=== PATIENT | male | born 1965 | race Caucasian/White ===

== ENCOUNTER 2016-09-11 15:58 | Emergency (ER) | payer OTHER ==
[~2016-09-11] VITALS: Ht 167.6 cm; Wt 93.9 kg
[~2016-09-11 15:58] MED LIST: AMOXICILLIN875 M1 PO; BACTRIM DS TAB1 EACH PO; HYDROCODONE/ACE1 TA1 PO; PERCOCET 5-3251 EACH PO
--- NOTE | 2016-09-11 17:18 | ED UPPER/LOWER EXTREMITY COMPL ---
History of Present Illness General Chief Complaint: Skin Rash/ Abcess Stated Complaint: RASH L FOREARM,[facility] Source: patient, old records Exam Limitations: no limitations Vital Signs & Intake/Output Vital Signs & Intake/Output Vital Signs Date Time Temp Pulse Resp B/P B/P Pulse O2 O2 Flow FiO2 Mean Ox Delivery Rate 09/11 1751 Room Air Room Air 09/11 1744 98.8 84 16 111/66 94 Room Air 09/11 1636 98.7 78 16 112/66 94 Room Air ED Intake and Output 09/12 0000 09/11 1200 Intake Total 60 Output Total Balance 60 Intake, Oral 60 Patient 207 lb Weight Weight Estimated Measurement Method Allergies Coded Allergies: NO KNOWN ALLERGIES (01/17/16) Reconcile Medications Cephalexin (Keflex) 500 MG CAPSULE 1 CAP PO TID cellulitis Sulfamethoxazole/Trimethoprim (Bactrim Ds Tablet) 800 MG-160 MG TABLET 1 TAB PO BID cellulitis Triage Note: RECEIVED 51 YO MALE C/O LEFT FOREARM REDNESS, SWELLING AND WARMTH, STARTED 2 DAYS AGO, GETTING WORSE. AREA SWOLLEN AND HARD. PAINFUL. Triage Nurses Notes Reviewed? yes Onset: Gradual Duration: day(s): (2), constant Timing: recent history Severity: mild, moderate Severity Numbers: 5 Pain/Injury Location: Left: Forearm. Method of Injury: unknown No Modifying Factors: none Associated Symptoms: none HPI: 51-year-old male presents to ER for evaluation complaining of redness warmth and swelling to the left volar forearm for the past 2 days. The patient denies any known injury or trauma however he has a history of IV drug abuse. The patient states he has been clean for several months denies recent use. He states she was scratched by his cat approximate one month ago however denies any palpitations from the scratch to his forearm. No fever no chills. Patient denies noting any discharge or bleeding from the cat scratch. He is not taken anything for symptoms. [facility] he had a fever and referred him to the ER he did not take any Tylenol or Motrin on arrival the patient is afebrile (ROSA MEHTA) Past History Travel History Traveled to [place] past 21 day No Medical History Any Pertinent Medical History? see below for history Neurological: seizure EENT: NONE Cardiovascular: NONE Respiratory: NONE Gastrointestinal: diverticulitis Hepatic: NONE Renal: NONE Musculoskeletal: NONE Psychiatric: NONE Endocrine: NONE Blood Disorders: NONE Cancer(s): NONE MEDICINE AND HEALTH SERVICE MANAGER/Reproductive: NONE Surgical History Surgical History: non-contributory Psychosocial History What is your primary language [place] Tobacco Use: Current Daily Use Daily Tobacco Use Amount/Type: => 5 Cigarettes daily Family History Hx Contributory? No (ROSA MEHTA) Review of Systems Review of Systems Constitutional: Reports: see HPI. All Other Systems: Reviewed and Negative Comments Review of systems: See HPI, All other systems negative. Constitutional, no chills no fever, no malaise HEENT: No visual changes no sore throat no congestion, no ear pain Cardiovascular: No chest pain , no palpitation , no orthopnea Skin: see hpi Respiratory: No dyspnea no cough no sputum no hemoptysis GI: No nausea no vomiting, no diarrhea : No dysuria No hematuria Muscle skeletal: No joint pain, no joint swelling, no back pain, no neck pain, Neurologic: no headache Psych: No stress Heme/endocrine: No bruising Immunology: No lymphadenopathy (ROSA MEHTA) Physical Exam Physical Exam General Appearance: well developed/nourished, no apparent distress, alert, awake Comments: Well-developed well-nourished patient in no apparent distress. HEENT: Atraumatic, extraocular motion intact Neck: Supple, FROM Back: FROM Cardiovascular: Regular rate and rhythms no murmurs rubs or gallops, Respiratory: Chest nontender.There were no bony deformities, no asymmetry. No respiratory distress. Patient speaking in full complete sentences. Breath sounds clear to auscultation bilaterally: NO W/R/R Extremities: full range of motion, atraumatic Neuro: awake, alert, and oriented to person, place and time. There were no obvious focal neurologic abnormalities. Skin: Warm & dry; mild erythema and warmth over the lower proximal left forearm, there is no track doyle or signs of recent drug abuse, no induration or fluctuance Psych: Mood affect normal, normal memory normal judgment. (ROSA MEHTA) Progress Differential Diagnosis: contusion, dislocation, DVT, fracture, gout, septic arthritis, sprain, tendon injury, thrombophlebitis Plan of Care: Current Medications Sig/Shelli Start time Last Medication Dose Stop Time Status Admin Cephalexin 500 MG ONCE ONE 09/11 1744 UNVr (Keflex) 09/11 1745 Trimethoprim/ 1 TAB ONCE ONE 09/11 1744 UNVr Sulfamethoxazole 09/11 1745 (Bactrim DS) Patient medicated with Bactrim and Keflex old records are reviewed ultrasound is unavailable at this time however there is no clear fluid collection palpated there is no streaking up the skin patient clinically appears well he will return in 48 hours for wound check return precautions were discussed the patient anytime sooner. I discussed with the patient at length all of their results. I had an extensive conversation regarding need for close follow up with their primary care physician this week as well as return precautions. I answered all of their questions, they feel comfortable with the plan and follow-up care. I discussed with the patient/family the medications that they will receive. I gave them signs and symptoms that could indicate an adverse reaction. I have advised them to limit their activities until they can see how they respond to the medication. (ROSA MEHTA) Departure Departure Time of Disposition: 1735 Disposition: HOME OR SELF CARE Condition: Stable Clinical Impression Primary Impression: Cellulitis Referrals: ANDRES QUEVEDO (PCP/Family) Additional Instructions: return to the ER on tuesday for wound check. Bactrim Keflex as directed warm compresses. These prescriptions were sent to your pharmacy. Return at anytime sooner if you develop streaking up the arm worsening rash a fever chills or any other concerns Departure Forms: Customer Survey General Discharge Information Prescriptions: Current Visit Scripts Sulfamethoxazole/Trimethoprim (Bactrim Ds Tablet) 1 TAB PO BID #14 TAB Cephalexin (Keflex) 1 CAP PO TID #21 CAP (ROSA MEHTA) PA/[employer] Co-Sign Statement Statement: ED Attending supervision documentation- [] I saw and evaluated the patient. I have also reviewed all the pertinent lab results and diagnostic results. I agree with the findings and the plan of care as documented in the PA's/[employer]ER's documentation. [X] I have reviewed the ED Record and agree with the PA's/[employer]ER's documentation. [] Additions or exceptions (if any) to the PAs/[employer]ER's note and plan are summarized below: [] (KAROLYN RUIZ,CHRISTINA Nix)
[2016-09-11] MEDS ORDERED: KEFLEX500 M1 PO (17:37)
[2016-09-11] MEDS ORDERED: BACTRIM DS TAB1 EACH PO (17:37)
[2016-09-11 17:44] VITALS: BP 111/66
== END 2016-09-11 17:53 ==
LOC: ERH 15:58
DX: L03.114 Cellulitis of left upper limb (principal)